=== PATIENT | female | born 1975 | race Caucasian/White ===

== ENCOUNTER 2019-04-22 08:12 | Outpatient (CLI) | payer OTHER, SELFPAY ==
--- NOTE | ~2019-04-22 | XR_ITS ---
XR hand RT min 3V 04/22/2019 08:31 Indication: Right hand numbness for months. Procedure: 3 views right hand Comparison: 03/13/2015 Findings: There are degenerative changes of the radiocarpal joint. No acute fracture, subluxation or dislocation. There is an old healed avulsion fracture of the radial styloid. No significant soft tiss ue abnormality. No radiopaque foreign bodies. Small chronic avulsion fracture ventral aspect of the t hird digit at the PIP joint. Impression: 1: No acute bone or joint abnormality. Reviewed, dictated and finalized at location B. TIER Impression: 1: No acute bone or joint abnormality.
== END 2019-04-22 08:13 | disposition home or self-care (01) ==
LOC: CHSIMG 08:20
PROVIDERS: PCP Internal Medicine; Visit Provider Orthopaedic Surgery
DX: M79.641 Pain in right hand (principal)
CPT/HCPCS: 73130

== ENCOUNTER 2020-01-27 10:40 | Outpatient (CLI) | payer OTHER, SELFPAY ==
--- NOTE | ~2020-01-27 | XR_ITS ---
XR cervical spine 4-5V DATE: 01/27/2020 11:06 INDICATION: Spondylosis. Neck pain. TECHNIQUE: Open-mouth, AP, lateral and bilateral oblique views COMPARISON: None FINDINGS: There is straightening of the cervical spine. C1 and C2 are normally aligned and the odontoid process is intact. No fracture or dislocation or locked facet or prevertebral soft tissue swelling. No significant bony encroachment upon the neural foramina is detected. Cervical interspaces are relatively preserved. IMPRESSION: Straightening of cervical spine Reviewed, dictated and finalized at location A. 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
== END 2020-01-27 10:41 | disposition home or self-care (01) ==
PROVIDERS: PCP Internal Medicine; Visit Provider Orthopaedic Surgery
DX: M47.812 Spondylosis without myelopathy or radiculopathy, cervical region (principal)
CPT/HCPCS: 72050

== ENCOUNTER 2021-07-09 07:58 | Emergency (ER) | payer OTHER, SELFPAY ==
[2021-07-09] VITALS (28 sets, daily range): BP systolic 92–109; BP diastolic 54–73; PULSE 59–79; RESP 10–25; O2SAT 94–100
--- NOTE | 2021-07-09 08:02 | ECG_ITS ---
Measurements Intervals [place] Rate: 71 P: 48 WA: 149 QRS: 46 QRSD: 81 T: 38 QT: 392 QTc: 427 Interpretive Statements SINUS RHYTHM LOW QRS VOLTAGE IN PRECORDIAL LEADS BORDERLINE ST-T WAVE ABNORMALITY- DIFFUSE LEADS BASELINE ARTIFACT- II, III BORDERLINE ECG Electronically Signed On 07-09-2021 8:24:38 CDT by Mike Cordova D.O.
[2021-07-09 08:09] LABS: Glucose Point of Care 128 mg/dl (65-105)
[2021-07-09 08:36] LABS: Basophils Percent Auto 0.5 % (0.2-1.2); Eosinophils Absolute Auto 0.1 K/mm3 (0-0.3); Eosinophils Percent Auto 1.9 % (0-4.4); Hematocrit 36.9 % (37.0-47.0); Hemoglobin 12.1 g/dL (12.0-15.0); Immature Granulocyte Absolute 0.01 K/mm3 (0.00-0.031); Immature Granulocyte Percent A 0.3 % (0-0.5); Lymphocytes Absolute Auto 1.59 K/mm3 (0.9-3.2); Lymphocytes Percent Auto 43.4 % (18.3-44.2); Mean Corpuscular HGB Conc 32.8 g/dl (32-36); Mean Corpuscular Hemoglobin 30.6 pg (26-34); Mean Corpuscular Volume 93.2 fl (80-100); Mean Platelet Volume 9.3 fl (7.4-10.4); Monocytes Absolute Auto 0.4 K/mm3 (0.1-0.6); Monocytes Percent Auto 10.7 % (2.6-8.5); Neutrophils Absolute Auto 1.6 K/mm3 (1.3-6.7); Neutrophils Percent Auto 43.2 % (45.5-73.1); Platelet Count Result 246 k/mm3 (150-375); Red Blood Count 3.96 M/mm3 (4.2-5.4); Red Cell Distribution Width 12.4 % (11.5-14.5); White Blood Count 3.7 K/mm3 (4.5-10.0)
[2021-07-09 08:49] LABS: Alanine Aminotransferase 11 U/L (6-35); Albumin Level 4.3 g/dL (3.5-5.1); Alkaline Phosphatase 43 U/L (38-126); Anion Gap 8 mmol/L (8-16); Aspartate Amino Transferase 22 U/L (14-36); Bilirubin,Total 0.2 mg/dL (0.2-1.3); Blood Urea Nitrogen 17 mg/dL (7-17); Calcium 8.5 mg/dL (8.4-10.2); Carbon Dioxide 25 mmol/L (22-30); Chloride 102 mmol/L (98-107); Estimated CRCL calculation 55 ml/min; Estimated Glomerular Filt Rate 54; Glucose 103 mg/dL (65-110); Potassium 4.1 mmol/L (3.4-5.0); Sodium 135 mmol/L (137-145)
--- NOTE | 2021-07-09 10:04 | ED.DIZZY ---
HPI - Dizziness General Chief Complaint: Dizziness Stated Complaint: when I stand up I feel faint Time Seen by Provider: 07/09/21 09:07 Source: patient Mode of arrival: ambulatory Limitations: no limitations History of Present Illness HPI Narrative: 45-year-old female presents today with complaints of dizziness when she tried to get up this morning. Patient states she awoke and was fine it was when she tried to get out of bed that the dizziness was noted. Patient does states she has a history of this in the past but it was a long time ago. Patient states she has never been seen for it before. Patient states oral intake has been normal at this time. Patient denies any abdominal pain nausea, vomiting, or diarrhea. Patient did noted increased intake of caffeine over the last few days. Patient also arrives with complaints of a migraine. Patient states she has history of migraines. Pain rated 7 out of 10 to the head at this time. Related Data Home Medications Medication Instructions Recorded Confirmed gabapentin 300 mg capsule 600 mg PO TID cap 04/22/19 10/06/20 omeprazole PO 04/22/19 10/06/20 tizanidine 2 mg capsule 2 mg PO TID PRN 04/22/19 10/06/20 zolpidem 5 mg tablet 5 mg PO ONCE 04/22/19 10/06/20 atorvastatin 10 mg tablet See Rx Instructions PO DAILY 10/06/20 bupropion HCl 150 mg 24 hr tablet, 150 mg PO QAM 10/06/20 extended release celecoxib 50 mg capsule See Rx Instructions PO BID 10/06/20 Allergies Allergy/AdvReac Type Severity Reaction Status Date / Time No Known Allergies Allergy Verified 07/09/21 08:05 Review of Systems Review of Systems: CONSTITUTIONAL: Denies fever, chills, or sweats. EYES: Denies visual changes, redness, or discharge. ENT: Denies rhinorrhea, congestion, sore throat, or otalgia. CARDIOVASCULAR: Denies chest pain, palpitations, or edema. RESPIRATORY: Denies cough or dyspnea. GASTROINTESTINAL: Denies abdominal pain, nausea, vomiting, or diarrhea. GENITOURINARY: Denies dysuria or hematuria. SKIN: Denies rash or itching. MUSCULOSKELETAL: Denies back pain, joint pain, or myalgia. NEUROLOGIC: Dizziness when changing positions. Denies headache, numbness, or weakness. PSYCHIATRIC: Denies anxiety or depression. [facility] Past Medical History Medical History Arthritis Cervical spondylarthritis Cubital tunnel syndrome on right GERD (gastroesophageal reflux disease) Headache Weight gain Surgical History Surgical History History of lumbar fusion Family History Family History Father Hypertension Other Family history of heart disease in male family member before age 55 Social History Social History Alcohol intake: current Alcohol use details: Occasional Exam Narrative: GENERAL: Well-appearing, well-nourished, and in no acute distress. HEAD: Normocephalic, atraumatic. EYES: PERRLA and EOMI. ENT: Nares clear, no rhinorrhea or epistaxis. Mucous membranes moist. Oropharynx without tonsillar hypertrophy exudate or other lesions. Bilateral TMs pearly humphreys nonbulging NECK: Supple. No adenopathy or masses. No carotid bruits or JVD CHEST: Clear to auscultation. No respiratory distress. No wheezes rales or rhonchi HEART: Regular rate and rhythm. No murmur heard. Normal peripheral pulses. ABDOMEN: Soft, nontender, nondistended, normal active bowel sounds. EXTREMITIES: Normal range of motion. No edema. SKIN: Warm, dry, no rash. NEURO: No focal deficits. Alert and oriented x3. PSYCH: Normal mood and affect. Course Course Emergency Course: Patient received IV fluids, Toradol, Benadryl, and Reglan during her stay. After fluids states she was feeling better. Patient ambulated without dizziness or complaints. Patient to be discharged home with plan follow-up with
[2021-07-09] MEDS: SODIUM CHLORIDE 0.9% IV 1,000 ML 999 ML IV CONT (10:05)
[2021-07-09] MEDS: diphenhydrAMINE HCl INJ 50 MG/ML VIAL 12.5 MG IV PUSH (10:05)
[2021-07-09] MEDS: METOCLOPRAMIDE HCL INJ 10 MG/2 ML VIAL IV PUSH (10:06)
[2021-07-09] MEDS: KETOROLAC 30 MG/ML VIAL (*BKC) 15 MG IV PUSH (10:06)
== END 2021-07-09 13:54 | disposition home or self-care (01) ==
PROVIDERS: Emergency Medicine; Emergency Provider Nurse Practitioner Family; PCP Internal Medicine
DX: R42 Dizziness and giddiness (principal); M19.90 Unspecified osteoarthritis, unspecified site; K21.9 Gastro-esophageal reflux disease without esophagitis; Z98.1 Arthrodesis status; R94.31 Abnormal electrocardiogram [ECG] [EKG]
CPT/HCPCS: 36415; 80053; 81025; 82948; 85025; 93005; 96361; 96374; 96375; 99284; J1200; J1885; J2765; J7030